=== PATIENT | male | born 1975 | race Caucasian/White ===

== ENCOUNTER → 2022-02-04 | Outpatient (CLI) | payer SELFPAY ==
--- NOTE | 2022-02-05 08:21 | US ---
EXAMINATION TYPE: US venous doppler duplex LE RT DATE OF EXAM: 02/04/2022 5:09 PM COMPARISON: NONE CLINICAL HISTORY: M79.661 PAIN IN RT LEG. Right leg pain. SIDE PERFORMED: Right TECHNIQUE: The lower extremity deep venous system is examined utilizing real time linear array sonog miriam with graded compression, doppler sonography and color-flow sonography. VESSELS IMAGED: Common Femoral Vein Deep Femoral Vein Greater Saphenous Vein * Femoral Vein Popliteal Vein Small Saphenous Vein * Proximal Calf Veins (* superficial vessels) PTV Peroneal Right Leg: Negative for DVT IMPRESSION: 1. Right lower extremity ultrasound negative for deep venous thrombosis.
== END | disposition home or self-care (01) ==
LOC: RADUSWWP 16:42
PROVIDERS: ATTEND Emergency Medicine
DX: M79.661 Pain in right lower leg (principal)